=== PATIENT | female | born 1960 | race Caucasian/White ===

== ENCOUNTER 2017-06-25 07:47 | Day surgery (SDC) | payer OTHER, BC ==
[~2017-06-25 07:47] MED LIST: Midazolam 1 MG/ML 2 ML SDV ONE; Propofol 200 MG/20 ML SDV ONE; fentaNYL 100 MCG/2 ML SDV ONE
[2017-06-25] MEDS ORDERED: Dextrose 5%-Lactated Ringers 1,000 ML IV SCH (08:30)
[2017-06-25] MEDS ORDERED: Barium Sulfate 105% w/v Susp 1,900 ML Bottle PO ONE (12:51)
[2017-06-25 14:18] VITALS: BP 124/85
--- NOTE | 2017-06-25 14:45 | CR ---
Barium enema. Findings: Redemonstrated sigmoid colon. Minimal diverticuli within the sigmoid colon. Contrast evide nt into the small bowel. Some limitations of the transverse colon. Only well-visualized on the poste vacuation film. There is no evidence for stricture or mass on this examination.
--- NOTE | 2017-06-26 11:35 | OR ---
DATE OF PROCEDURE: 06/25/2017 PREOPERATIVE DIAGNOSIS: History of colon adenomatous polyps along with strong family history of colon carcinoma. POSTOPERATIVE DIAGNOSES: 1. History of colon adenomatous polyps along with strong family history of colon carcinoma. 2. Recurrent disease to level of the distal transverse colon. 3. 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 OPERATIVE PROCEDURE: Flexible colonoscopy (incomplete) ([id number]). ANESTHESIA: IV sedation. INDICATION FOR PROCEDURE: This 56-year-old female presenting with roughly a year status post colonoscopy at which time the serrated adenomatous polyp was excised. She presents for followup colonoscopy. Of note, the patient has a fairly concerning family history regarding colon cancer with her father having colon cancer in his 30's, as well as again later in life, and as well as some other relatives having colon cancer at relatively early age. Plan is to proceed with flexible colonoscopy with biopsies and/or polypectomy as indicated. Potential risks including bleeding and perforation were discussed, and the patient wishes to proceed. DESCRIPTION OF PROCEDURE: The patient was taken to the operating room and placed in a left lateral decubitus position. IV sedation was administered, after which the initial digital rectal exam was performed and was unremarkable. Colonoscope was then passed into the rectum with retroflexion revealing uncomplicated hemorrhoidal columns. The scope was then passed eventually to the level of the distal most transverse colon. The scope could not be passed beyond that point despite numerous efforts. The patient had what appeared to be extremely redundant sigmoid colon at this point with the colon bowing out, not allowing passage of scope more proximally despite lengthy numerous attempts at various positions and external pressure on the abdomen. To that level however, there were no additional abnormalities noted. The scope was then withdrawn and the procedure then concluded. The plan will be to proceed with a barium enema x-ray, this will be done later this afternoon. The results on that are pending. We will contact the patient regarding management options. In future, this might be a case in which we alternate colonoscopies with colon x-rays or also possible virtual colonoscopies with CT scan, which would adequately highlight the right colon. Devang Keller MD /[id number]
== END 2017-06-25 14:40 | disposition home or self-care (01) ==
LOC: JP.SDS 07:47
PROVIDERS: ATTEND Surgery
DX: Z86.010 Personal history of colon polyps (principal); Z80.0 Family history of malignant neoplasm of digestive organs; Z12.11 Encounter for screening for malignant neoplasm of colon
CPT/HCPCS: 45378; 74270; J2250; J2704; J3010; J7042